=== PATIENT | female | born 1965 | race Caucasian/White ===

== ENCOUNTER 2017-03-26 16:59 | Emergency (ER) | payer SELFPAY ==
[~2017-03-26] VITALS: Ht 154.9 cm; Wt 90.3 kg
[2017-03-26] MEDS ORDERED: CHERATUSSIN AC473 ML PO (18:56)
[2017-03-26] MEDS ORDERED: PREDNISONE10 M1 PO (18:56)
[2017-03-26] MEDS ORDERED: VENTOLIN HFA18 GM IH (18:56)
[2017-03-26] MEDS ORDERED: TESSALON200 MG PO (18:56)
[2017-03-26 19:34] VITALS: BP 137/94
== END 2017-03-26 19:36 | disposition home or self-care (01) ==
LOC: EME 16:59
DX: J20.9 Acute bronchitis, unspecified (principal); F17.210 Nicotine dependence, cigarettes, uncomplicated
CPT/HCPCS: 71020; 99281; 99284